=== PATIENT | male | born 2000 ===

== ENCOUNTER 2020-10-23 06:00 | Outpatient (RCR) | payer BC, SELFPAY | END 2020-11-01 23:59 | disposition home or self-care (01) | LOC: GPT 06:00 | PROVIDERS: Family Provider Nurse Practitioner; Referring Provider Orthopaedic Surgery; Visit Provider Orthopaedic Surgery | DX: Z47.89 Encounter for other orthopedic aftercare (principal) | CPT/HCPCS: 97110; 97140; 97161; 97530 ==

== ENCOUNTER 2020-11-02 06:00 | Outpatient (RCR) | payer OTHER, SELFPAY | END 2020-12-02 23:59 | disposition home or self-care (01) | LOC: GPT 06:00 | PROVIDERS: Family Provider Nurse Practitioner; Referring Provider Orthopaedic Surgery; Visit Provider Orthopaedic Surgery | DX: Z47.89 Encounter for other orthopedic aftercare (principal) | CPT/HCPCS: 97032; 97110; 97140 ==

== ENCOUNTER 2020-12-03 06:00 | Outpatient (RCR) | payer OTHER, SELFPAY | END 2020-12-30 23:59 | disposition home or self-care (01) | LOC: GPT 06:00 | PROVIDERS: Family Provider Nurse Practitioner; Referring Provider Orthopaedic Surgery; Visit Provider Orthopaedic Surgery | DX: Z47.89 Encounter for other orthopedic aftercare (principal) | CPT/HCPCS: 97032; 97110 ==